=== PATIENT | female | born 1945 | race Caucasian/White ===

== ENCOUNTER → 2017-06-21 | Outpatient (CLI) | payer MEDICARE ==
--- NOTE | 2017-06-22 13:53 | RAD ---
DATE: 06/21/2017 EXAM: MAMMO RASHAWN SCREENING BILATERAL HISTORY: Screening study COMPARISON: 03/26/2014 This study was interpreted with the benefit of Computerized Aided Detection (CAD). The breast parenchyma is heterogeneously dense, which could reduce sensitivity of mammography. Breast parenchyma level C. FINDINGS: Digital MLO and CC mammograms of both breasts were obtained. Additionally digital breast tomosynthesis images of both breasts in the MLO and CC projections were performed. The breast parenchyma is heterogeneous dense which can obscure a lesion on mammography (breast density code C). Benign-appearing and vascular calcifications are seen within both breasts. No spiculated mass is seen. No malignant appearing calcification or area of architectural distortion is noted. Digital breast tomosynthesis images demonstrate no spiculated mass. No malignant appearing calcification is seen. Since the previous examination there has been no significant interval change. IMPRESSION: BI-RADS Category 1, negative. There is no mammographic evidence of malignancy. Routine yearly screening mammography is recommended for follow-up. BI-RADS CATEGORY: 1 NEGATIVE RECOMMENDED FOLLOW-UP: 12M 12 MONTH FOLLOW-UP PQRS compliance statement: Patient information was entered into a reminder system with a target due date 06/21/2018 for the next mammogram. Mammography is a sensitive method for finding small breast cancers, but it does not detect them all and is not a substitute for careful clinical examination. A negative mammogram does not negate a clinically suspicious finding and should not result in delay in biopsying a clinically suspicious abnormality. "Our facility is accredited by the [employer] Mammography Program."
== END | disposition home or self-care (01) ==
LOC: MAMMO 14:27
PROVIDERS: ATTEND Family Medicine
DX: Z12.31 Encounter for screening mammogram for malignant neoplasm of breast (principal)
CPT/HCPCS: 77063; G0202; 77067

== ENCOUNTER 2018-06-20 17:10 | Inpatient (IN) | payer MEDICARE ==
[~2018-06-20] VITALS: Ht 165.1 cm; Wt 91.4 kg
[2018-06-20 17:43] VITALS: BP 110/71
[2018-06-20 18:07] LABS: BASO % 1 % (0-3); EOS # 0.2 x10^3/uL (0.0-0.7); EOS % 4 % (0-3); HEMATOCRIT 43.2 % (36.0-47.0); HEMOGLOBIN 14.2 g/dL (12.0-15.5); LYMPH # 1.8 x10^3/uL (1.0-4.8); LYMPH % 26 % (24-48); MEAN CORPUSCULAR HEMOGLOBIN 27 pg (25-35); MEAN CORPUSCULAR HGB CONC 33 g/dL (31-37); MEAN CORPUSCULAR VOLUME 83 fL (79-100); MONO # 0.5 x10^3/uL (0.0-1.1); MONO % 7 % (0-9); NEUT # 4.3 x10^3uL (1.8-7.7); NEUT % 63 % (31-73); PLATELET COUNT 288 x10^3/uL (140-400); RED BLOOD COUNT 5.19 x10^6/uL (3.50-5.40); RED CELL DISTRIBUTION WIDTH 15.7 % (11.5-14.5); WHITE BLOOD COUNT 6.8 x10^3/uL (4.0-11.0)
[2018-06-20] MEDS ORDERED: MORPHINE SULFATE 2 MG/ML DISP.SYRIN. IV PRN (18:15)
[2018-06-20 18:27] LABS: ALBUMIN 3.7 g/dL (3.4-5.0); ALBUMIN/GLOBULIN RATIO 0.9 (1.0-1.7); CREATININE 1.2 mg/dL (0.6-1.0); GFR 43.8; POTASSIUM 4.2 mmol/L (3.5-5.1); TOTAL BILIRUBIN 0.6 mg/dL (0.2-1.0); TOTAL PROTEIN 7.6 g/dL (6.4-8.2)
[2018-06-20] MEDS ORDERED: ONDANSETRON ODT 4 MG TAB.RAPDIS PO PRN (19:00)
[2018-06-20 19:22] VITALS: BP 118/76
[2018-06-20] MEDS ORDERED: BUPR-192 PO (19:24)
[2018-06-20] MEDS ORDERED: FURO-69 PO (19:24)
[2018-06-20] MEDS ORDERED: LEVO150T5 PO (19:24)
[2018-06-20] MEDS ORDERED: ASPI-630 PO (19:24)
[2018-06-20] MEDS ORDERED: [UNRECOGNIZED DRUG - CODE] PO (19:24)
[2018-06-20] MEDS ORDERED: PANT40TA5 PO (19:24)
--- NOTE | 2018-06-20 19:31 | EKG ---
[address] [address] Test Date: 2018-06-20 Test Time: 19:26:35 Pat Name: LORE VILLELA Department: Room: 123 A Gender: F [employer] Assistant: : [id number] Requested By: SEBASTIAN ESCOBAR Order Number: [id number] Reading MD: Freddie Schumacher MD Measurements Intervals [place] Rate: 70 P: 2 VT: 158 QRS: 0 QRSD: 78 T: 24 QT: 410 QTc: 446 Interpretive Statements SINUS RHYTHM CONSISTENT WITH INFERIOR INFARCT PROBABLY OLD ABNORMAL ECG Electronically Signed On 06-21-2018 12:36:09 CDT by Freddie Schumacher MD
[2018-06-20] MEDS: IV 1/2 NORMAL SALINE 1,000 ML IV SCH (20:39)
[2018-06-20 22:10] LABS: BACTERIA,URINE FEW /HPF (0-FEW); BILIRUBIN,URINE NEG (NEG); CLARITY,URINE CLEAR; COLOR,URINE YELLOW; GLUCOSE,URINE NEG (NEG); HYALINE CASTS, URINE OCC /HPF; NITRITE,URINE NEG (NEG); RBC,URINE 0 /HPF (0-2); SQUAMOUS EPITHELIAL CELL,UR FEW /LPF; UROBILINOGEN,URINE 0.2 mg/dL (0.2 mg/dL); WBC,URINE 0 /HPF (0-4)
[2018-06-20 22:21] VITALS: BP 103/66
[2018-06-20] MEDS ORDERED: IOHEXOL 300 MG/ML 75 ML VIAL. IV ONE (23:45)
[2018-06-20] MEDS ORDERED: IOHEXOL 240 MG/ML 50ML VIAL. PO ONE (23:45)
[2018-06-20] MEDS ORDERED: CONTRAST GIVEN MC PRN (23:45)
[2018-06-21 05:12] VITALS: BP 143/76
[2018-06-21] MEDS: LEVOTHYROXINE 150 MCG TABLET PO SCH (06:03)
[2018-06-21 06:52] LABS: BASO # 0.1 x10^3/uL (0.0-0.2); BASO % 1 % (0-3); EOS # 0.3 x10^3/uL (0.0-0.7); EOS % 4 % (0-3); HEMATOCRIT 40.7 % (36.0-47.0); HEMOGLOBIN 13.1 g/dL (12.0-15.5); LYMPH # 1.8 x10^3/uL (1.0-4.8); LYMPH % 30 % (24-48); MEAN CORPUSCULAR HEMOGLOBIN 27 pg (25-35); MEAN CORPUSCULAR HGB CONC 32 g/dL (31-37); MEAN CORPUSCULAR VOLUME 84 fL (79-100); MONO # 0.4 x10^3/uL (0.0-1.1); MONO % 7 % (0-9); NEUT # 3.6 x10^3uL (1.8-7.7); NEUT % 58 % (31-73); PLATELET COUNT 253 x10^3/uL (140-400); RED BLOOD COUNT 4.85 x10^6/uL (3.50-5.40); RED CELL DISTRIBUTION WIDTH 15.7 % (11.5-14.5); WHITE BLOOD COUNT 6.2 x10^3/uL (4.0-11.0)
[2018-06-21 06:59] LABS: CALCIUM 8.6 mg/dL (8.5-10.1); CREATININE 1.1 mg/dL (0.6-1.0); GFR 48.4; POTASSIUM 3.8 mmol/L (3.5-5.1)
--- NOTE | 2018-06-21 08:38 | RAD ---
CT of the abdomen and pelvis with contrast, 06/20/2018: HISTORY: Epigastric pain, right flank pain, nausea Multidetector CT imaging was performed following oral and IV administration of contrast. No previous CT studies are currently available for correlation purposes. The unopacified liver is unremarkable. The gallbladder is surgically absent. No pancreatic abnormality is detected. There are calcified granulomata in the spleen. The spleen is of normal size. There is a 2.2 cm low-density lesion arising from the lateral aspect of the left kidney. It demonstrates an internal CT number of 42 Hounsfield units which is higher than a simple cyst. This may be a complicated cyst or solid mass. The kidneys show no evidence of obstruction. There is mild nodular thickening of both adrenal glands, right greater than left. Aortoiliac calcific plaquing is present without evidence of aneurysm. The uterus is surgically absent. Colonic diverticulosis is present, most extensive in the sigmoid region. No paracolonic inflammatory process is seen. The bowel loops are not dilated. There is a moderate sized hiatal hernia. No free fluid or free air is evident in the abdomen or pelvis. Mild to moderate multilevel degenerative changes are present in the spine. IMPRESSION: 1. Extensive sigmoid diverticulosis. 2. Moderate-sized hiatal hernia. 3. Medium density left renal nodule which may be a complicated cyst or a solid mass. 4. Mild nodular thickening of both adrenal glands which may be due to small adenomas, although an active process such as metastatic disease cannot be excluded. 5. MR scanning may be useful in further evaluation of the adrenal and renal abnormalities, if clinically indicated. PQRS Compliance Statement: One or more of the following individualized dose reduction techniques were utilized for this examination: 1. Automated exposure control 2. Adjustment of the mA and/or kV according to patient size 3. Use of iterative reconstruction technique] Electronically signed by: Chi Moralez MD (06/21/2018 8:35 AM) [facility]
[2018-06-21] MEDS: PANTOPRAZOLE 40 MG TABLET. PO SCH (09:00)
[2018-06-21] MEDS: ASPIRIN 81 MG TAB.CHEW PO SCH (09:00)
[2018-06-21] MEDS: NITROGLYCERIN 2.5 MG PO SCH (09:00)
[2018-06-21] MEDS: buPROPion XL 150 MG TAB.ER.24H PO SCH (09:00)
[2018-06-21] MEDS: FUROSEMIDE 20 MG TABLET PO SCH (09:00)
[2018-06-21] MEDS: IV 1/2 NORMAL SALINE 1,000 ML IV SCH ×2 (09:01→20:40)
[2018-06-21] MEDS ORDERED: IOHEXOL 300 MG/ML 75 ML VIAL. IV ONE (09:45)
[2018-06-21 10:59] VITALS: BP 122/72
--- NOTE | 2018-06-21 11:32 | RAD ---
Chest CTA History: Elevated d-dimer, shortness of air Technique: After bolus of intravenous contrast, CT imaging was performed of the chest. Multiplanar reconstruction images to include MIP reconstruction images are submitted. Exposure: One or more of the following individualized dose reduction techniques were utilized for this examination: 1. Automated exposure control 2. Adjustment of the mA and/or kV according to patient size 3. Use of iterative reconstruction technique. Contrast: 60 cc Omnipaque 300 Comparison: None Findings: [ No pulmonary embolism is identified. There is coronary calcification. Thoracic aortic caliber is within normal limits without intraluminal flap. There are small hilar nodes and mediastinal nodes, no significantly enlarged nodes identified. There is no pneumothorax, pleural or pericardial effusion, lobar infiltrate. There is mild atelectasis left lower lobe. There is a probable small left lower lobe nodule axial image 51 series 3 about 0.4 cm. There is moderate size hiatal hernia, wall thickening of involved segment. There has been cholecystectomy. There is fullness of the adrenal glands bilaterally, density characteristics of underlying adenomas. There are contrast opacified collateral vessels of the right breast. Not fully included, there is exophytic lesion of the visualized left kidney as seen on recent June 20, 2018 CT abdomen pelvis exam. Impression: 1. No pulmonary embolism is identified. 2. There is coronary calcification. 3. There is moderate size hiatal hernia, nonspecific wall thickening of involved segment. 4. There are bilateral adrenal adenomas. 5. As seen on recent CT abdomen pelvis, there is exophytic lesion of the left kidney, solid lesion not excluded. 6. There is small 0.4 cm left lower lobe pulmonary nodule. As per revised Fleischner guidelines, no additional follow-up of this nodule is needed if low risk factors for neoplasm, optional 12 month follow-up if increased risk factors. Electronically signed by: Juan Espinal MD (06/21/2018 11:29 AM) [facility]
[2018-06-21 13:50] LABS: FECAL OB PT NEGATIVE (NEG)
[2018-06-21 14:50] VITALS: BP 112/73
[2018-06-21 19:54] VITALS: BP 109/60
[2018-06-21] MEDS ORDERED: ACETAMINOPHEN 325 MG TABLET PO PRN (22:30)
[2018-06-21 22:41] VITALS: BP 122/86
[2018-06-22] MEDS: LEVOTHYROXINE 150 MCG TABLET PO SCH (05:51)
[2018-06-22 05:58] VITALS: BP 122/69
--- NOTE | 2018-06-22 06:55 | PN ---
DATE: 06/21/2018 SUBJECTIVE: The patient is a 73-year-old female with severe epigastric and right upper quadrant pain. The patient has been having trouble eating and food has been hanging in her stomach. The patient otherwise seems to be resting fairly comfortably. She did have a positive D-dimer. CTA again demonstrates this left kidney lesion and that will have to be worked up as an outpatient; however, because the patient is still having problems eating and drinking, we will probably have to go ahead and get her transferred for a GI consultation in the morning. OBJECTIVE: VITAL SIGNS: Blood pressure 110/60, respiration 18, pulse 70, afebrile. LUNGS: The patient's lungs clear. CARDIOVASCULAR: Stable. ABDOMEN: Soft, can tender in epigastric and right upper quadrant area and still having difficulty eating. Positive bowel sounds. Stool hemoccult negative. EXTREMITIES: No clubbing, cyanosis or edema. NEUROLOGIC: Baseline for her. IMPRESSION: The patient does have coronary artery disease. She has had apparently an old infarction, according to her EKG and scans do show calcification of the coronary arteries. SEBASTIAN ESCOBAR MD DR: ALICIA/sabas JOB#: [id number] / [id number]
[2018-06-22] MEDS: PANTOPRAZOLE 40 MG TABLET. PO SCH (07:46)
[2018-06-22] MEDS: FUROSEMIDE 20 MG TABLET PO SCH (07:46)
[2018-06-22] MEDS: buPROPion XL 150 MG TAB.ER.24H PO SCH (07:46)
[2018-06-22] MEDS: ASPIRIN 81 MG TAB.CHEW PO SCH (07:46)
[2018-06-22] MEDS: NITROGLYCERIN 2.5 MG PO SCH (08:04)
[2018-06-22] MEDS: IV 1/2 NORMAL SALINE 1,000 ML IV SCH (10:02)
[2018-06-22 10:54] VITALS: BP 112/67
== END 2018-06-22 13:04 | disposition short-term general hospital (02) | DRG 392 ==
LOC: 1 SOUTH 17:10 → EDSTATUS 17:36
PROVIDERS: ADMIT Family Medicine; ATTEND Family Medicine
DX: K44.9 Diaphragmatic hernia without obstruction or gangrene (principal); I25.10 Atherosclerotic heart disease of native coronary artery without angina pectoris; F17.210 Nicotine dependence, cigarettes, uncomplicated; N18.3 Chronic kidney disease, stage 3 (moderate); I12.9 Hypertensive chronic kidney disease with stage 1 through stage 4 chronic kidney disease, or unspecified chronic kidney disease; E03.9 Hypothyroidism, unspecified; K29.60 Other gastritis without bleeding; Z86.010 Personal history of colon polyps; Z90.49 Acquired absence of other specified parts of digestive tract; Z90.89 Acquired absence of other organs; Z90.710 Acquired absence of both cervix and uterus; Z80.42 Family history of malignant neoplasm of prostate; Z80.0 Family history of malignant neoplasm of digestive organs; Z83.3 Family history of diabetes mellitus; Z88.8 Allergy status to other drugs, medicaments and biological substances; Z91.041 Radiographic dye allergy status; Z79.899 Other long term (current) drug therapy
CPT/HCPCS: 36415; 71275; 74177; 80048; 80053; 81001; 82150; 82274; 82553; 82947; 83605; 83690; 84484; 85025; 85379; 93005; 99406; J7030; Q0162; Q9966; Q9967

== ENCOUNTER → 2018-07-14 | Outpatient (CLI) | payer MEDICARE ==
[2018-06-22 10:54] VITALS: BP 112/67
[~2018-07-14] MED LIST: ASPI-630 PO; BUPR-192 PO; FURO-69 PO; LEVO150T5 PO; PANT40TA5 PO; [UNRECOGNIZED DRUG - CODE] PO
--- NOTE | 2018-07-14 11:49 | RAD ---
Upper GI with small bowel follow-through HISTORY: Abdominal pain, rule out obstruction, history of epigastric and right flank pain COMPARISON: There is no previous similar exam available, correlation made with June 20, 2018 CT exam FINDINGS: Dairy Tester radiograph demonstrates nonobstructive bowel gas pattern. There has been cholecystectomy. Upper GI and small bowel follow-through examination was performed. There is a moderate-sized sliding hiatal hernia. There is no evidence of bowel obstruction, contrast seen in the right colon at about 60 minutes, later seen throughout most of the colon at 80 minutes. Small bowel is not dilated. There were a few tertiary contractions seen of the distal esophagus although otherwise esophageal motility is considered within normal limits, no significant stricture. No duodenal or gastric ulcer was identified. Fluoroscopy time: 1 minute 45 images IMPRESSION: 1. There is moderate size sliding hiatal hernia, no significant stricture. 2. There is no evidence of small bowel obstruction. Electronically signed by: Juan Espinal MD (07/14/2018 11:45 AM) [facility]
== END | disposition home or self-care (01) ==
LOC: DXRAD 09:39
PROVIDERS: ATTEND Family Medicine
DX: K44.9 Diaphragmatic hernia without obstruction or gangrene (principal); I12.9 Hypertensive chronic kidney disease with stage 1 through stage 4 chronic kidney disease, or unspecified chronic kidney disease; N18.3 Chronic kidney disease, stage 3 (moderate); F17.210 Nicotine dependence, cigarettes, uncomplicated; E03.9 Hypothyroidism, unspecified; Z86.010 Personal history of colon polyps; Z90.49 Acquired absence of other specified parts of digestive tract; Z90.710 Acquired absence of both cervix and uterus; Z79.899 Other long term (current) drug therapy; Z91.041 Radiographic dye allergy status; Z88.8 Allergy status to other drugs, medicaments and biological substances; Z80.42 Family history of malignant neoplasm of prostate; Z83.3 Family history of diabetes mellitus; Z80.0 Family history of malignant neoplasm of digestive organs
CPT/HCPCS: 74245

== ENCOUNTER → 2019-01-24 | Outpatient (CLI) | payer MEDICARE ==
--- NOTE | 2019-01-26 08:18 | RAD ---
DATE: 01/24/2019 EXAM: MAMMO RASHAWN SCREENING BILATERAL HISTORY: Routine screening COMPARISON: 06/21/2017 This study was interpreted with the benefit of Computerized Aided Detection (CAD). Breast Density: HETERO The breast parenchyma is heterogenously dense, which could reduce sensitivity of mammography. Breast parenchyma level C. FINDINGS: 2-D and 3-D tomosynthesis imaging was performed in CC and MLO projections. No new or enlarging breast densities are seen. Scattered benign type calcifications are present. This includes a stable cluster in the lateral aspect of the left breast. No suspicious microcalcifications have developed. IMPRESSION: Stable mammograms without evidence of malignancy. BI-RADS CATEGORY: 2 BENIGN FINDING(S) RECOMMENDED FOLLOW-UP: 12M 12 MONTH FOLLOW-UP PQRS compliance statement: Patient information was entered into a reminder system with a target due date for the next mammogram. Mammography is a sensitive method for finding small breast cancers, but it does not detect them all and is not a substitute for careful clinical examination. A negative mammogram does not negate a clinically suspicious finding and should not result in delay in biopsying a clinically suspicious abnormality. "Our facility is accredited by the [employer] Mammography Program."
== END | disposition home or self-care (01) ==
LOC: MAMMO 14:04
PROVIDERS: ATTEND Family Medicine
DX: Z12.31 Encounter for screening mammogram for malignant neoplasm of breast (principal); R92.8 Other abnormal and inconclusive findings on diagnostic imaging of breast
CPT/HCPCS: 77063; 77067

== ENCOUNTER → 2019-11-13 | Outpatient (CLI) | payer MEDICARE ==
[~2019-11-13] MED LIST changes: +CEFD300C PO; +FAMO20TA5 PO; +PRED-220 PO
--- NOTE | 2019-11-13 18:34 | RAD ---
CHEST PA LATERAL History: Cough Comparison: 06/21/2017 CT of the chest. Findings: Frontal and lateral views of chest were obtained. The cardiomediastinal silhouette is normal. Pulmonary vasculature is normal. The lungs are clear. No pleural effusion or pneumothorax is seen. There is no acute bone abnormality. Right upper quadrant surgical clips noted. IMPRESSION: No acute cardiopulmonary process. Electronically signed by: Damien Oconnor MD (11/13/2019 6:31 PM) [facility]
== END | disposition home or self-care (01) ==
LOC: DXRAD 14:46
PROVIDERS: ATTEND Family Medicine
DX: J18.0 Bronchopneumonia, unspecified organism (principal)
CPT/HCPCS: 71046

== ENCOUNTER 2019-11-23 16:50 | Inpatient (IN) | payer MEDICARE ==
[~2019-11-23] VITALS: Ht 165.1 cm; Wt 90.7 kg
[~2019-11-23 16:50] MED LIST changes: -CEFD300C PO; -FAMO20TA5 PO; -PRED-220 PO
[2019-11-23 17:14] VITALS: BP 109/71
[2019-11-23 18:06] LABS: ALBUMIN 4.2 g/dL (3.4-5.0); ALBUMIN/GLOBULIN RATIO 1.1 (1.0-1.7); CALCIUM 9.2 mg/dL (8.5-10.1); CREATININE 1.7 mg/dL (0.6-1.0); GFR 29.2; POTASSIUM 3.5 mmol/L (3.5-5.1); TOTAL BILIRUBIN 0.5 mg/dL (0.2-1.0); TOTAL PROTEIN 7.9 g/dL (6.4-8.2)
[2019-11-23] MEDS ORDERED: FAMO20TA5 PO (18:31)
[2019-11-23] MEDS ORDERED: ONDANSETRON ODT 4 MG TAB.RAPDIS PO PRN (18:45)
[2019-11-23] MEDS ORDERED: ZOLPIDEM 5 MG TABLET. PO PRN (18:45)
[2019-11-23 18:54] LABS: BASO # 0.1 x10^3/uL (0.0-0.2); BASO % 2 % (0-3); EOS # 0.2 x10^3/uL (0.0-0.7); EOS % 4 % (0-3); HEMATOCRIT 46.6 % (36.0-47.0); HEMOGLOBIN 14.9 g/dL (12.0-15.5); LYMPH # 1.6 x10^3/uL (1.0-4.8); LYMPH % 25 % (24-48); MEAN CORPUSCULAR HEMOGLOBIN 28 pg (25-35); MEAN CORPUSCULAR HGB CONC 32 g/dL (31-37); MEAN CORPUSCULAR VOLUME 88 fL (79-100); MONO # 0.3 x10^3/uL (0.0-1.1); MONO % 5 % (0-9); NEUT # 4.1 x10^3uL (1.8-7.7); NEUT % 65 % (31-73); PLATELET COUNT 188 x10^3/uL (140-400); RED BLOOD COUNT 5.27 x10^6/uL (3.50-5.40); RED CELL DISTRIBUTION WIDTH 19.1 % (11.5-14.5); WHITE BLOOD COUNT 6.4 x10^3/uL (4.0-11.0)
[2019-11-23] MEDS ORDERED: IOHEXOL 240 MG/ML 50ML VIAL. PO ONE (19:00)
[2019-11-23] MEDS ORDERED: IPRATRPIUM/ALBUTEROL 0.5/2.5MG 3 ML NEBU. NEB SCH (20:00)
[2019-11-23] MEDS: IPRATRPIUM/ALBUTEROL 0.5/2.5MG 3 ML NEBU. NEB SCH (20:07)
[2019-11-23 21:06] LABS: BACTERIA,URINE FEW /HPF (0-FEW); BILIRUBIN,URINE NEG (NEG); CLARITY,URINE HAZY; COLOR,URINE YELLOW; GLUCOSE,URINE NEG (NEG); NITRITE,URINE NEG (NEG); RBC,URINE RARE /HPF (0-2); SQUAMOUS EPITHELIAL CELL,UR OCC /LPF; UROBILINOGEN,URINE 0.2 mg/dL (0.2 mg/dL)
[2019-11-23 23:37] VITALS: BP 97/62
--- NOTE | 2019-11-24 03:40 | RAD ---
EXAM: CT Abdomen and Pelvis without IV contrast CLINICAL HISTORY: Loss of appetite unable to eat, feels full quickly . COMPARISON: none TECHNIQUE: Helical CT of the abdomen and pelvis without intravenous contrast. Axial, coronal and sagittal reformatted images were generated. PQRS compliance statement - One or more of the following individualized dose reduction techniques were utilized for this study: 1. Automated exposure control 2. Adjustment of the mA and/or kV according to patient size 3. Use of iterative reconstruction technique FINDINGS: Lack of intravenous contrast limits evaluation of solid organs, vasculature, and lymph nodes. Lower chest: Linear opacities in the lower lobes likely scarring/atelectasis. Right lower lobe calcified granuloma are seen. Aortic root calcifications are seen. Small moderate hiatal hernia. Abdomen and Pelvis: No focal liver lesion. Accounting for postcholecystectomy change, no biliary ductal dilatation. Pancreas is unremarkable. Calcified granuloma are seen within the spleen. Bilateral adrenal adenomas are again seen, grossly stable. An exophytic left renal lesion appears to contain solid component measuring 2.4 x 1.7 cm, previously 2.2 x 1.5 cm when remeasured in a similar fashion. No hydronephrosis. No hydroureter. No renal tract calculus. Moderate colonic stool content is seen. Colonic diverticulosis. No evidence for acute diverticulitis. No free or loculated abdominal or pelvic collection. No bowel obstruction. No abdominal or pelvic lymphadenopathy within the constraints of noncontrast examination. Aortic calcifications are seen. Aorta is normal in caliber. Bones: Degenerative changes of the hip joints and spine are seen. IMPRESSION: 1. Small to moderate hiatal hernia. 2. Moderate colonic stool content is seen. No bowel obstruction. 3. Solid-appearing left interpolar exophytic renal lesion has mildly increased in size should be further assessed with MRI if not previously performed 4. No renal tract calculus. Electronically signed by: Jaylen Chacko MD (11/24/2019 3:37 AM) [facility]
[2019-11-24] MEDS: IPRATRPIUM/ALBUTEROL 0.5/2.5MG 3 ML NEBU. NEB SCH ×4 (05:03→20:00)
[2019-11-24 06:15] VITALS: BP 112/71
[2019-11-24] MEDS: LEVOTHYROXINE 150 MCG TABLET PO SCH (06:20)
[2019-11-24] MEDS ORDERED: PANTOPRAZOLE 40 MG TABLET. PO SCH (07:30)
[2019-11-24] MEDS: POTASSIUM CHLORIDE 20 MEQ TABLET.ER. PO SCH (08:24)
[2019-11-24] MEDS: PANTOPRAZOLE 40 MG TABLET. PO SCH (08:25)
[2019-11-24] MEDS: ASPIRIN 81 MG TAB.CHEW PO SCH (08:25)
[2019-11-24] MEDS: buPROPion XL 150 MG TAB.ER.24H PO SCH (08:25)
[2019-11-24] MEDS: FAMOTIDINE 20 MG TABLET PO SCH (08:25)
[2019-11-24] MEDS: NITROGLYCERIN 2.5 MG PO SCH (09:00)
[2019-11-24] MEDS ORDERED: FUROSEMIDE 20 MG TABLET PO SCH (09:00)
[2019-11-24 11:16] VITALS: BP 97/59
[2019-11-24] MEDS ORDERED: MAG HYDROX/AL HYDROX/SIMETH 30 ML ORAL.SUSP PO PRN (13:30)
[2019-11-24] MEDS ORDERED: BISACODYL 10 MG SUPP.RECT PR PRN (13:30)
[2019-11-24 14:07] LABS: BASO # 0.1 x10^3/uL (0.0-0.2); BASO % 2 % (0-3); EOS # 0.2 x10^3/uL (0.0-0.7); EOS % 5 % (0-3); HEMATOCRIT 41.8 % (36.0-47.0); HEMOGLOBIN 13.4 g/dL (12.0-15.5); LYMPH # 1.4 x10^3/uL (1.0-4.8); LYMPH % 28 % (24-48); MEAN CORPUSCULAR HEMOGLOBIN 28 pg (25-35); MEAN CORPUSCULAR HGB CONC 32 g/dL (31-37); MEAN CORPUSCULAR VOLUME 88 fL (79-100); MONO # 0.2 x10^3/uL (0.0-1.1); MONO % 5 % (0-9); NEUT % 62 % (31-73); PLATELET COUNT 170 x10^3/uL (140-400); RED BLOOD COUNT 4.73 x10^6/uL (3.50-5.40); RED CELL DISTRIBUTION WIDTH 18.9 % (11.5-14.5); WHITE BLOOD COUNT 4.9 x10^3/uL (4.0-11.0)
[2019-11-24 14:23] LABS: CALCIUM 8.8 mg/dL (8.5-10.1); CREATININE 1.7 mg/dL (0.6-1.0); GFR 29.2; POTASSIUM 3.6 mmol/L (3.5-5.1)
--- NOTE | 2019-11-24 14:29 | RAD ---
EXAM: Chest, single view. HISTORY: COPD exacerbation. COMPARISON: 11/13/2019 FINDINGS: A frontal view of the chest obtained. There is lingular and bilateral lower lobe opacity likely due to atelectasis. No consolidation, pleural effusion or pneumothorax is seen. There are calcified granulomas. The heart is normal in size. IMPRESSION: Suspected lingular and bilateral lower lobe atelectasis. Electronically signed by: Donna Frost MD (11/24/2019 2:26 PM) [facility]
--- NOTE | 2019-11-24 14:39 | RAD ---
Nuclear medicine ventilation/perfusion scan: Reason for examination: Short of breath. Positive d-dimer. Ventilation scan was performed using 12.6 mCi of xenon-133 gas with anterior and posterior imaging obtained during single breath, equilibrium and washout phases. There is homogeneous activity and good washout. Perfusion scan was performed using 5.5 mCi of technetium 99m MAA with the standard 8 imaging projections obtained. No perfusion defects are seen. There is no ventilation/perfusion mismatch evident. IMPRESSION: No perfusion defects and no ventilation/perfusion mismatch. Low probability of pulmonary embolus. Electronically signed by: Dora Haywood MD (11/24/2019 2:36 PM) [id number]
[2019-11-24] MEDS: ENOXAPARIN 40 MG/0.4 ML SYRINGE. SQ SCH (14:42)
[2019-11-24] MEDS: methylPREDNISolone SOD SUCC PF 40 MG/ML VIAL. IV SCH ×2 (14:43→22:19)
[2019-11-24 15:39] VITALS: BP 97/60
[2019-11-24] MEDS ORDERED: START PACK-AZITHROMY 100MG/5ML ORAL.SUSP 15ML BOTTLE STARTER PACK PO ONE (18:30)
[2019-11-24 19:30] VITALS: BP 96/60
[2019-11-24] MEDS: AZITHROMYCIN 500 MG in IV NORMAL SALINE 250ML 250 ML IV SCH (20:04)
[2019-11-24] MEDS: ACETAMINOPHEN 500 MG TABLET PO PRN (22:19)
[2019-11-24 22:53] VITALS: BP 93/58
--- NOTE | 2019-11-25 03:55 | PN ---
DATE: SUBJECTIVE: A 74-year-old female admitted with acute exacerbation of COPD. She is resting fairly comfortably. She did not sleep well last night. V/Q scan was unremarkable. The patient has some bilateral lower lobe atelectasis, may follow up on that with other testing. OBJECTIVE: VITAL SIGNS: Blood pressure is only 97/60, respiratory rate 20, pulse 70, afebrile. She is on oxygen. GENERAL: The patient otherwise alert, but very tired and weak appearing. LUNGS: Diminished, some crackles noted in the right lower lung base. CARDIOVASCULAR: Regular sinus rhythm. ABDOMEN: Protuberant, soft, nontender. EXTREMITIES: No clubbing, cyanosis, nor edema. Discussed with her and her the CT scan of the abdomen and pelvis showed a hard nodule in the left kidney, which will probably need to be evaluated with an MRI scan as an outpatient. The patient has been having problems eating of late and probably will need scopes and otherwise she is resting fairly comfortably. Her chest x-ray today did shows atelectasis. She had a V/Q scan that showed negative perfusion defects as the patient did have a positive D-dimer. IMPRESSION: Acute exacerbation of chronic obstructive pulmonary disease with probable bronchitis. The patient otherwise hypoxia, abdominal discomfort, anorexia, hypotension. Continue to monitor patient accordingly and she is on IV antibiotic therapy and will continue along with steroid therapy for her breathing and make further evaluation on her as indicated. SEBASTIAN ESCOBAR MD DR: ALICIA/sabas JOB#: [id number] / [id number]
[2019-11-25] MEDS: IPRATRPIUM/ALBUTEROL 0.5/2.5MG 3 ML NEBU. NEB SCH ×4 (05:33→20:00)
[2019-11-25] MEDS: LEVOTHYROXINE 150 MCG TABLET PO SCH (06:15)
[2019-11-25] MEDS: methylPREDNISolone SOD SUCC PF 40 MG/ML VIAL. IV SCH ×3 (06:15→22:00)
[2019-11-25 06:21] VITALS: BP 127/77
[2019-11-25] MEDS: POLYETHYLENE GLYCOL 3350 17 GM PACKET. PO SCH (08:48)
[2019-11-25] MEDS: FAMOTIDINE 20 MG TABLET PO SCH (08:49)
[2019-11-25] MEDS: LACTOBACILLUS RHAMNOSUS GG 1 CAPSULE. PO SCH ×2 (08:49→21:57)
[2019-11-25] MEDS: PANTOPRAZOLE 40 MG TABLET. PO SCH (08:49)
[2019-11-25] MEDS: buPROPion XL 150 MG TAB.ER.24H PO SCH (08:49)
[2019-11-25] MEDS: ASPIRIN 81 MG TAB.CHEW PO SCH (08:49)
[2019-11-25] MEDS: DOCUSATE SODIUM 100 MG CAPSULE PO SCH (08:49)
[2019-11-25] MEDS: POTASSIUM CHLORIDE 20 MEQ TABLET.ER. PO SCH (08:50)
[2019-11-25] MEDS: NITROGLYCERIN 2.5 MG PO SCH (08:50)
[2019-11-25 11:05] VITALS: BP 150/51
--- NOTE | 2019-11-25 12:38 | RAD ---
EXAM: Chest CT without intravenous contrast. HISTORY: Pneumonia. TECHNIQUE: Computed tomographic images of the chest were obtained without contrast. Multiplanar reformatting was performed. *One or more of the following individualized dose reduction techniques were utilized for this examination: 1. Automated exposure control. 2. Adjustment of the mA and/or kV according to patient size. 3. Use of iterative reconstruction technique. COMPARISON: 06/21/2018. FINDINGS: The heart is normal in size. There is calcified atherosclerotic plaque involving the aorta, main aortic arch great vessels and coronary arteries. No pathologically enlarged lymph node is seen. There is a moderate hiatal hernia. There is mild anterior pericardial thickening or trace pericardial fluid. There are calcified granulomas within the subcarinal and right hilar distribution. There is no pneumothorax or pleural effusion. There is nonspecific groundglass opacity within the lateral right upper lobe, suggesting pneumonia/pneumonitis. No consolidated infiltrate is seen. There is right middle lobe and bilateral lower lobe atelectasis. There are few scattered calcified granulomas within both lungs. No suspicious noncalcified nodule is seen. There are few tiny 2 mm nodular opacities which are likely benign based on size. There is linear thickening or there are bilateral adrenal adenomas. There are splenic granulomas. The gallbladder is surgically absent. There is a partially exophytic lesion along the lateral mid zone of the left kidney measuring 1.7 cm. The attenuation of this is greater than fluid. There are degenerative changes throughout the spine. No suspicious osseous lesion is seen. 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 IMPRESSION: 1. Scattered nonspecific groundglass opacities within the lateral right upper lobe suggesting pneumonia/pneumonitis. No consolidated infiltrate is seen. 2. Right middle lobe and bilateral lower lobe atelectasis. 3. Moderate hiatal hernia. 4. Healed granulomatous disease. 5. 1.7 cm lesion within the left kidney, the attenuation which is not consistent with simple fluid. This may be hemorrhagic cyst or solid lesion. This can be assessed with a sonogram. 6. Bilateral adrenal gland thickening or adrenal adenomas. Electronically signed by: Donna Frost MD (11/25/2019 12:35 PM) [facility]
[2019-11-25] MEDS ORDERED: guaiFENesin/CODEINE 100mg/10mg 5 ML LIQUID PO PRN (13:45)
[2019-11-25] MEDS: ENOXAPARIN 40 MG/0.4 ML SYRINGE. SQ SCH (14:15)
[2019-11-25 15:04] VITALS: BP 110/69
[2019-11-25 19:03] VITALS: BP 106/64
[2019-11-25] MEDS: AZITHROMYCIN 500 MG in IV NORMAL SALINE 250ML 250 ML IV SCH (20:26)
[2019-11-25] MEDS: ACETAMINOPHEN 500 MG TABLET PO PRN (21:58)
[2019-11-25 23:05] VITALS: BP 96/56
[2019-11-26] MEDS: IPRATRPIUM/ALBUTEROL 0.5/2.5MG 3 ML NEBU. NEB SCH ×4 (05:08→20:00)
[2019-11-26 05:47] VITALS: BP 126/65
[2019-11-26] MEDS: methylPREDNISolone SOD SUCC PF 40 MG/ML VIAL. IV SCH ×3 (06:47→22:00)
[2019-11-26] MEDS: LEVOTHYROXINE 150 MCG TABLET PO SCH (06:47)
[2019-11-26] MEDS: POLYETHYLENE GLYCOL 3350 17 GM PACKET. PO SCH (08:39)
[2019-11-26] MEDS: PANTOPRAZOLE 40 MG TABLET. PO SCH (08:39)
[2019-11-26] MEDS: ASPIRIN 81 MG TAB.CHEW PO SCH (08:39)
[2019-11-26] MEDS: FAMOTIDINE 20 MG TABLET PO SCH (08:39)
[2019-11-26] MEDS: POTASSIUM CHLORIDE 20 MEQ TABLET.ER. PO SCH (08:39)
[2019-11-26] MEDS: buPROPion XL 150 MG TAB.ER.24H PO SCH (08:39)
[2019-11-26] MEDS: LACTOBACILLUS RHAMNOSUS GG 1 CAPSULE. PO SCH ×2 (08:39→20:06)
[2019-11-26] MEDS: DOCUSATE SODIUM 100 MG CAPSULE PO SCH (08:39)
[2019-11-26] MEDS ORDERED: BISACODYL 10 MG SUPP.RECT PR PRN (08:45)
[2019-11-26] MEDS: NITROGLYCERIN 2.5 MG PO SCH (09:00)
[2019-11-26] MEDS ORDERED: POLYETHYLENE GLYCOL 3350 17 GM PACKET. PO SCH (09:00)
[2019-11-26 11:23] VITALS: BP 121/71
[2019-11-26] MEDS: ENOXAPARIN 40 MG/0.4 ML SYRINGE. SQ SCH (14:06)
[2019-11-26 15:17] VITALS: BP 116/66
[2019-11-26 19:10] VITALS: BP 122/70
[2019-11-26] MEDS: AZITHROMYCIN 500 MG in IV NORMAL SALINE 250ML 250 ML IV SCH (19:55)
[2019-11-26] MEDS: ACETAMINOPHEN 500 MG TABLET PO PRN (20:06)
[2019-11-26 22:08] VITALS: BP 131/64
[2019-11-26 23:06] LABS: HEMOGLOBIN A1C 6.3 % (4.8-5.6)
--- NOTE | 2019-11-26 23:28 | PN ---
DATE: SUBJECTIVE: The patient came in with acute exacerbation of COPD, pneumonia. The patient is doing somewhat better. She says she is feeling better. She still needs a good BM, but other than that, the patient is making fairly good progress, breathing a little bit easier, was able to sleep through the night without much on the way of oxygen. The patient otherwise seems to be resting fairly comfortably. OBJECTIVE: VITAL SIGNS: Blood pressure 126/65, respiratory rate 16, pulse 70, afebrile, and room air 93%. LUNGS: Diminished. Some coarse breath sounds throughout, but improved. CARDIOVASCULAR: Regular, sinus rhythm. ABDOMEN: Soft, protuberant. EXTREMITIES: No clubbing, cyanosis or edema. NEUROLOGIC: Intact. The patient continues to be monitored carefully and we will give her a laxative today. Keep breathing treatments, steroids, IV and make further evaluation. IMPRESSION: Acute exacerbation of chronic obstructive pulmonary disease, pulmonary disease with probable acute pneumonia for organism unspecified, hypoxia, abdominal discomfort, constipation, anorexia, hypotension. PLAN: Continue on IV Zosyn as indicated above. SEBASTIAN ESCOBAR MD DR: ALICIA/sabas JOB#: [id number] / [id number]
[2019-11-27 05:11] VITALS: BP 103/52
[2019-11-27] MEDS: IPRATRPIUM/ALBUTEROL 0.5/2.5MG 3 ML NEBU. NEB SCH ×4 (05:22→20:41)
[2019-11-27] MEDS: LEVOTHYROXINE 150 MCG TABLET PO SCH (06:00)
[2019-11-27] MEDS: methylPREDNISolone SOD SUCC PF 40 MG/ML VIAL. IV SCH ×3 (06:00→20:24)
[2019-11-27] MEDS: LACTOBACILLUS RHAMNOSUS GG 1 CAPSULE. PO SCH ×2 (08:47→20:24)
[2019-11-27] MEDS: FAMOTIDINE 20 MG TABLET PO SCH (08:48)
[2019-11-27] MEDS: PANTOPRAZOLE 40 MG TABLET. PO SCH (08:48)
[2019-11-27] MEDS: POTASSIUM CHLORIDE 20 MEQ TABLET.ER. PO SCH (08:48)
[2019-11-27] MEDS: POLYETHYLENE GLYCOL 3350 17 GM PACKET. PO SCH (08:48)
[2019-11-27] MEDS: buPROPion XL 150 MG TAB.ER.24H PO SCH (08:48)
[2019-11-27] MEDS: DOCUSATE SODIUM 100 MG CAPSULE PO SCH (08:48)
[2019-11-27] MEDS: ASPIRIN 81 MG TAB.CHEW PO SCH (08:48)
[2019-11-27] MEDS: NITROGLYCERIN 2.5 MG PO SCH (08:51)
[2019-11-27 10:30] VITALS: BP 161/66
[2019-11-27] MEDS: ENOXAPARIN 40 MG/0.4 ML SYRINGE. SQ SCH (14:08)
[2019-11-27 15:10] VITALS: BP 150/71
[2019-11-27 19:25] VITALS: BP 120/68
[2019-11-27] MEDS: AZITHROMYCIN 500 MG in IV NORMAL SALINE 250ML 250 ML IV SCH (20:26)
[2019-11-27 22:45] VITALS: BP 125/72
--- NOTE | 2019-11-28 02:26 | PN ---
DATE: 11/27/2019 SUBJECTIVE: A 74-year-old female in with pneumonia and exacerbation of COPD. The patient is resting fairly calmly, says she is feeling fairly good. CT scan did show the pneumonic process, however chest x-rays were basically unremarkable, but she is improved. OBJECTIVE: VITAL SIGNS: Blood pressure 150/70, respiratory rate 20, pulse 70, afebrile. GENERAL: The patient is alert and oriented. LUNGS: Still some coarse breath sounds. CARDIOVASCULAR: Stable. ABDOMEN: Soft. NEUROLOGIC: Intact. IMPRESSION: Pneumonia of unspecified etiology, community acquired; acute exacerbation of chronic obstructive pulmonary disease with hypoxia. PLAN: As above. Continue with workup as indicated. SEBASTIAN ESCOBAR MD DR: ALICIA/sabas JOB#: [id number] / [id number]
[2019-11-28] MEDS: IPRATRPIUM/ALBUTEROL 0.5/2.5MG 3 ML NEBU. NEB SCH ×2 (04:47→09:48)
[2019-11-28] MEDS: methylPREDNISolone SOD SUCC PF 40 MG/ML VIAL. IV SCH (05:33)
[2019-11-28] MEDS: LEVOTHYROXINE 150 MCG TABLET PO SCH (05:33)
[2019-11-28 05:48] VITALS: BP 138/78
[2019-11-28 06:44] LABS: BASO % 0 % (0-3); EOS % 0 % (0-3); HEMATOCRIT 39.2 % (36.0-47.0); HEMOGLOBIN 12.5 g/dL (12.0-15.5); LYMPH # 1.2 x10^3/uL (1.0-4.8); LYMPH % 15 % (24-48); MEAN CORPUSCULAR HEMOGLOBIN 28 pg (25-35); MEAN CORPUSCULAR HGB CONC 32 g/dL (31-37); MEAN CORPUSCULAR VOLUME 89 fL (79-100); MONO # 0.3 x10^3/uL (0.0-1.1); MONO % 4 % (0-9); NEUT # 6.2 x10^3uL (1.8-7.7); NEUT % 81 % (31-73); PLATELET COUNT 165 x10^3/uL (140-400); RED BLOOD COUNT 4.41 x10^6/uL (3.50-5.40); RED CELL DISTRIBUTION WIDTH 19.5 % (11.5-14.5); WHITE BLOOD COUNT 7.7 x10^3/uL (4.0-11.0)
[2019-11-28 06:54] LABS: ALBUMIN 3.4 g/dL (3.4-5.0); CALCIUM 8.5 mg/dL (8.5-10.1); CREATININE 1.2 mg/dL (0.6-1.0); GFR 43.7; POTASSIUM 4.2 mmol/L (3.5-5.1); TOTAL BILIRUBIN 0.3 mg/dL (0.2-1.0); TOTAL PROTEIN 6.8 g/dL (6.4-8.2)
[2019-11-28] MEDS: POLYETHYLENE GLYCOL 3350 17 GM PACKET. PO SCH (07:53)
[2019-11-28] MEDS: buPROPion XL 150 MG TAB.ER.24H PO SCH (07:53)
[2019-11-28] MEDS: PANTOPRAZOLE 40 MG TABLET. PO SCH (07:53)
[2019-11-28] MEDS: FAMOTIDINE 20 MG TABLET PO SCH (07:53)
[2019-11-28] MEDS: DOCUSATE SODIUM 100 MG CAPSULE PO SCH (07:53)
[2019-11-28] MEDS: LACTOBACILLUS RHAMNOSUS GG 1 CAPSULE. PO SCH (07:53)
[2019-11-28] MEDS: ASPIRIN 81 MG TAB.CHEW PO SCH (07:53)
[2019-11-28] MEDS: POTASSIUM CHLORIDE 20 MEQ TABLET.ER. PO SCH (07:53)
[2019-11-28 08:19] LABS: % ATYL 1 % (0-0); % BANDS 1 % (0-9); % LYMPHS 12 % (24-48); % MONOS 7 % (0-10); % SEGS 79 % (35-66)
[2019-11-28 08:20] LABS: PLT ESTIMATE ADEQUATE (ADEQUATE)
[2019-11-28 08:22] LABS: TARGET CELLS FEW
[2019-11-28] MEDS ORDERED: PRED-220 PO (10:48)
[2019-11-28] MEDS ORDERED: CEFD300C PO (10:48)
[2019-11-28 10:56] VITALS: BP 142/74
== END 2019-11-28 11:49 | disposition home or self-care (01) | DRG 177 ==
LOC: 1 SOUTH 16:50
PROVIDERS: ADMIT Family Medicine; ATTEND Family Medicine
DX: J15.6 Pneumonia due to other Gram-negative bacteria (principal); J96.01 Acute respiratory failure with hypoxia; J44.1 Chronic obstructive pulmonary disease with (acute) exacerbation; J44.0 Chronic obstructive pulmonary disease with (acute) lower respiratory infection; J15.9 Unspecified bacterial pneumonia; K59.00 Constipation, unspecified; I10 Essential (primary) hypertension; F17.200 Nicotine dependence, unspecified, uncomplicated; E03.9 Hypothyroidism, unspecified; K44.9 Diaphragmatic hernia without obstruction or gangrene; I25.10 Atherosclerotic heart disease of native coronary artery without angina pectoris; Z90.710 Acquired absence of both cervix and uterus; Z85.820 Personal history of malignant melanoma of skin; Z98.61 Coronary angioplasty status; I25.2 Old myocardial infarction; Z80.42 Family history of malignant neoplasm of prostate; Z83.3 Family history of diabetes mellitus
CPT/HCPCS: 36415; 71045; 71250; 74176; 78582; 80048; 80053; 81001; 83036; 83605; 84134; 84145; 85007; 85025; 85379; 87040; 87086; 94640; 96374; 99406; A9540; A9558; J0456; J0696; J1650; J2920; J7050; J7620; Q9966; 97110; 97116